=== PATIENT | female | born 1995 | race Caucasian/White ===

== ENCOUNTER 2017-12-18 10:48 | Inpatient (IN) ==
[~2017-12-18 10:48] MED LIST: *HR* Nalbuphine 10 MG/ML AMPUL IVP PRN; Famotidine 20 MG/2 ML VIAL IVP PRN; Metoclopramide 10 MG/2 ML VIAL IVP PRN; Naloxone 0.4 MG/ML INJ IVP PRN; Ondansetron 4 MG/2 ML VIAL IVP PRN
[2017-12-18] MEDS ORDERED: Penicillin G Potassium 5,000,000 UNIT in 0.9 % Sodium Chloride 100 ML IVPB ONE (10:51)
[2017-12-18] MEDS ORDERED: Ringers Solution, Lactated 1,000 ML ONE (10:54)
[2017-12-18] MEDS ORDERED: Ringers Solution, Lactated 1,000 ML IVC SCH (11:00)
--- NOTE | 2017-12-18 11:08 | OB/GYN History & Physical ---
Date of Encounter: 12/18/17 Time of Encounter: 11:09 Assessment and Plan (1) 39 weeks gestation of Current visit: Yes Status: Acute Intrauterine Active labor Admit to L&D for observation of labor Expectant management Labs-CBC and clot to hold Continuous electronic monitoring Pain management plan is undecided Anticipate Dr. Stanford is OB recreation coordinator and and is available as needed (2) SROM (spontaneous rupture of membranes) Current visit: Yes Status: Acute (3) Meconium in amniotic fluid Current visit: Yes Status: Acute Nursery and respiratory to attend delivery (4) GBS (group B Streptococcus carrier), +RV culture, currently Current visit: Yes Status: Acute GBS prophylaxis with penicillin (5) Rh negative status during in third trimester Current visit: Yes Status: Acute Rhogam evaluation History of Present Illness Chief complaint: SROM HPI: Ms. Jacobson is a 22 year old female at 39 weeks 3 days gestation with an estimated date of of 12/22/17. She presents with complaints of spontaneous rupture membranes that was green and clear this morning around 8 AM. She states that 20 minutes later her contractions began. She endorses good movement and denies vaginal bleeding. She has been seen by the midwives throughout her . records are available electronically and have been reviewed. Her has been uncomplicated. Labs: A- GBS + GC/CL- HIV- Hep B- Rubella immune Varicella immune Past Med Surg Social Fam HX - Past Medical History Medical history: no medical history Psychiatric history: no psych history - Social History Smoking Status: Never smoker Smokeless Tobacco Status: No Obstetrical History - Pregnancies : 2 Para: 0 Term: 0 : 0 Ab's: 1 Livin Medications and Allergies 3 Allergy/AdvReac Type Severity Reaction Status Date / Time No Known Allergies Allergy Verified 07/23/17 14:29 Review of System OB All systems PM: reviewed and no additional remarkable complaints except as stated - Genitourinary Genitourinary: as per HPI Exam - Constitutional Constitutional: well developed, well nourished, moderate distress - HEENT HEENT: Normocephaly, Mucus Membranes Moist - Neck Neck exam: full ROM - Lungs Respiratory exam: CTAB - Cardiovascular Cardiovascular exam: RRR, +S1, +S2 - Breasts Breast: bilateral: normal - Abdomen Abdomen: Present: bowel sounds normal, gravid, non tender - Extremities Extremities exam: normal capillary refill, normal inspection, radial pulses palpable and symmetrical - Vulva Vulva: bilateral: normal - Vagina Vagina: Present: normal moisture, discharge - Cervix Dilation: 6 Effacement: 90 Station: 0 - Uterus Uterus exam: Present: normal size, normal contour - Anus/Rectum Anus/Rectum: Present: normal perianal skin Results All other labs normal. - VTE Reasons for not Prescribing Prophylaxis: Treatment not Indicated - Low risk for VTE
[2017-12-18 11:51] LABS: Basophils % 0.1 %; Hematocrit 41.2 % (35.3-44.9); Hemoglobin 14.4 g/dL (11.5-15.4); Immature Granulocytes % 0.8 % (0-4); Lymphocytes # 0.9 K/mcL (0.6-4.6); Mean Corpuscular Hemoglobin 31.5 pg (28.0-33.3); Mean Corpuscular Volume 90.2 fL (83.0-100.0); Monocytes # 1.8 K/mcL (0.0-1.3); Monocytes % 8.2 %; Neutrophils # 18.6 K/mcL (1.6-8.9); Platelet Count 180 K/mcL (140-400); Red Blood Count 4.57 M/mcL (3.82-4.97); Red Cell Distribution Width 13.5 % (11.5-14.5); Segmented Neutrophils % 86.9 %
[2017-12-18] MEDS ORDERED: Penicillin G Potassium 2,500,000 UNIT in 0.9 % Sodium Chloride 100 ML IVPB SCH (12:00)
[2017-12-18] MEDS ORDERED: Epidural Premix (fent/bupiv) 110 ML EP SCH (12:30)
[2017-12-18] MEDS ORDERED: Lidocaine 1% 20 ML MDV ONE (12:32)
[2017-12-18] MEDS ORDERED: Epidural Premix (fent/bupiv) 110 ML EP ONE (12:38)
--- NOTE | 2017-12-18 13:09 | Anesthesia Evaluation PreOp ---
Date of Encounter: 12/18/17 Time of Encounter: 12:00 - Past History Cardiac History: Denies any Significant Hx Pulmonary History: Denies Any Significant HX SUPERVISOR EVAPORATOR History: Denies Any Significant HX Other Medical History: Denies Any Significant HX Anesthesia History: No Prior Anesthetic Complications : Yes Test: Positive Alcohol Use: none Drug use: none Medications and Allergies 3 Allergy/AdvReac Type Severity Reaction Status Date / Time No Known Allergies Allergy Verified 07/23/17 14:29 - Meds/Allergy Pre-op Review Medications Reviewed: Yes Allergies Reviewed: Yes Beta Blockers on Current Med List: No Anesthesia Results - Labs 12/18/17 11:08 Anesthesia Exam - HEENT Pupil (Motor): Pupils equal Mallampati: II Teeth: Normal Oral Opening: Greater than 3 - SUPERVISOR EVAPORATOR LOC: Oriented SUPERVISOR EVAPORATOR Motor: Normal RUE, Normal LUE, Normal RLE, Normal LLE, Normal Face SUPERVISOR EVAPORATOR Sensory: Normal: RUE, LUE, RLE, LLE, Face - Cardiac Rhythm: Regular Murmur: None JVD: No Carotid Bruit: No - Pulmonary Breath Sounds: bilateral Clear Respiratory Effort: Symmetrical Anesthesia Assess/Plan ASA Score: 2 Modified Asael Scale for Level of Consciousness: Cooperative, oriented, and tranquil Anesthetic Plan: Regional Autologous Blood: No Monitoring Plan: Standard Monitors
--- NOTE | 2017-12-18 13:12 | Anesthesia Procedures ---
Date of Encounter: 12/18/17 Time of Encounter: 12:00 Procedures: Anesthesia - Epidural/Spinal Patient ID/Chart reviewed: Yes Patient examined: Yes OB Eval: Gestational age: 39.3 OB Eval: : 1 OB Eval: Hx Para: 0 OB Eval: Dilated at (cm): 6 OB Eval: Contractions: Non-stressed pattern Consent Obtained: Yes Supplemental Oxygen: None/Room Air Site Prep: Aseptic Technique, Sterile prep and drape, Povidone-Iodine 1% Patient position: upright Amount of Local Anesthetic used: 3 Touhy Needle Gauge: 18 Touhy Needle Depth (cm): 6 Catheter Depth at Skin (cm): 8 Test Dose (1.5% Lido + Epi): Volume given (mls): 3 Test Dose Result: Negative Loading Dose Administered: Thru Catheter Infusion Rate (mls/hr): [address]: Tegaderm, Tape Interspace Used: L4-L5 Loss of Resistance (IDALIA): Yes Blood: No CSF: No Paresthesia: No Vitals + FHT's: stable throughout see nursing notes
--- NOTE | 2017-12-18 15:09 | OB Labor Progress Note ---
Date of Encounter: 12/18/17 Time of Encounter: 15:06 Labor Progress Note - Subjective Subjective: Pt comfortable with epidural. - Cervix Cervix: 9.5/100/+1 - Heart Tones Heart Tones: Baseline 155 Minimal to moderate variability No accelerations No decelerations FHR category II - [place]: Contractions every 3 minutes and palpate strong - Interventions Interventions: NINA leon - Plan Plan: Continue expectant management Alethea leon x 1 hour Anticipate
[2017-12-18] MEDS ORDERED: Lidocaine 1% 20 ML MDV INFILT PRN (15:53)
[2017-12-18] MEDS ORDERED: Oxytocin 20 units/ LR 1000 mL 20 UNIT/1,000 ML BAG IVC ONE ×2 (16:23→20:41)
--- NOTE | 2017-12-18 18:59 | OB/GYN Procedure Note ---
Delivery - Delivery Date: 12/18/17 Provider: Candi Layne Intrapartum events: meconium Delivery induction: none Delivery monitor: external FHT, external uterine Anesthesia: epidural Quantitated Blood Loss: 400 - (s) Infant A Infant Delivery Date: 12/18/17 Infant Delivery Time: 17:22 Presentation: vertex Position: YENNY Route of delivery: Gender: Male Viability: Viable Pounds: 8 Ounces: 3 Weight Gram: 3.71 kg at 1 minute: 8 at 5 mins: 9 Shoulder Dystocia: not encountered Specimens collected: cord blood Placenta: spontaneous Cord: 3 umbilical vessels - Repair Episiotomy: none Laceration Description: Perineal - 3rd Degree (partial - repaired by Dr. Stanford) - Complications Delivery complications: none Delivery comments: This is a 22-year-old G1 now P1 who is admitted for spontaneous rupture of membranes with meconium-stained fluid in active labor. She progressed spontaneously to the second stage of labor. She pushed for a little more than an hour. Under maternal effort she delivered a viable male "Matthew Tod Glass III", YENNY over a partial third-degree laceration. The infant was placed on the maternal abdomen where the mouth and nares were bulb suctioned. The cord was clamped by resident surgeon and cut by FOB after pulsations ceased. No nuchal cord was identified. No shoulder dystocia was encountered. scores were 8 at 1 minute and 9 at 5 minutes. 's weight was 8lbs 3oz (3710g). The placenta delivered ([place]) spontaneously, intact, with a three-vessel cord. Inspection revealed a partial third degree laceration for which Dr. Stanford was called in to repair. Please see Dr. Stanford's addendum for details of repair. The uterus was firm with no active bleeding. The repair was done under epidural anesthesia. EBL was 400 mL. Placenta was sent to pathology for multiple large fatty appearing globules. Umbilical artery blood gases were not sent. There were no complications during the procedure. Mom and baby are skin to skin following delivery. - Disposition Mom disposition: stable in LDR disposition: stable in LDR
[2017-12-18] MEDS ORDERED: Sennosides 8.6 MG TABLET PO PRN (22:21)
[2017-12-18] MEDS ORDERED: Rho Immune Globulin 1,500 UNIT SYRINGE IM PRN (22:21)
[2017-12-18] MEDS ORDERED: Benzocaine/Menthol 56 GM AEROSOL SPRAY TP PRN (22:21)
[2017-12-18] MEDS ORDERED: Oxytocin 20 units/ LR 1000 mL 20 UNIT/1,000 ML BAG IVC SCH (22:21)
[2017-12-18] MEDS ORDERED: *HR* HYDROcodone/Acet 5/325 mg TABLET PO PRN (22:21)
[2017-12-18] MEDS ORDERED: Acetaminophen 325 MG TABLET PO PRN (22:21)
[2017-12-19 04:42] LABS: Basophils % 0.1 %; Hematocrit 29.7 % (35.3-44.9); Immature Granulocytes % 0.8 % (0-4); Lymphocytes % 4.9 %; Mean Corpuscular HGB Conc 34.7 g/dL (31.6-35.5); Mean Corpuscular Hemoglobin 30.5 pg (28.0-33.3); Mean Corpuscular Volume 87.9 fL (83.0-100.0); Mean Platelet Volume 9.9 fL (9.4-12.4); Monocytes # 2.2 K/mcL (0.0-1.3); Neutrophils # 16.6 K/mcL (1.6-8.9); Platelet Count 180 K/mcL (140-400); Red Blood Count 3.38 M/mcL (3.82-4.97); Red Cell Distribution Width 14.1 % (11.5-14.5); Segmented Neutrophils % 83.2 %
[2017-12-19 04:44] LABS: Hemoglobin 10.3 g/dL (11.5-15.4)
[2017-12-19] MEDS: Ibuprofen 600 MG TABLET PO PRN ×2 (05:24→09:17)
[2017-12-19 08:20] VITALS: BP 106/70
[2017-12-19] MEDS ORDERED: Prenatal Vit/FA 1 EACH TABLET PO SCH (09:00)
--- NOTE | 2017-12-19 09:51 | Discharge Summary ---
Date of Encounter: 12/19/17 Time of Encounter: 09:51 - Discharge Diagnosis (1) Vaginal delivery Priority: Primary Status: Acute Comments: Pt meeting milestones. Pain well controlled. She desires discharge home today. (2) Third degree perineal laceration Priority: Secondary Status: Acute Comments: Home with dermoplast, colace, and sitz bath. (3) Rh negative status during in third trimester Priority: Secondary Status: Acute Comments: Rhogam prior to discharge. - Discharge Medications Prescriptions: Ibuprofen [Motrin] 600 mg PO Q6HR PRN #30 tablet PRN Reason: Cramping Docusate [Colace] 100 mg PO BID #60 capsule Home Medications: Benzocaine/Menthol Helen [Dermoplast Helen] 1 appl TP QID PRN aerosol 12/19/17 [Rx] Docusate [Colace] 100 mg PO BID #60 capsule 12/19/17 [Rx] Ibuprofen [Motrin] 600 mg PO Q6HR PRN #30 tablet 12/19/17 [Rx] Vit/FA 1 each PO DAILY tablet 12/19/17 [Rx] Allergies/Adverse Reactions: 3 Allergy/AdvReac Type Severity Reaction Status Date / Time No Known Allergies Allergy Verified 07/23/17 14:29 Data Procedures and tests throughout hospitalization: Laboratory Tests 12/18/17 12/18/17 12/19/17 11:08 18:20 04:26 WBC 21.4 H 20.0 H RBC 4.57 3.38 L Hgb 14.4 10.3 L D Hct 41.2 29.7 L MCV 90.2 87.9 MCH 31.5 30.5 MCHC 35.0 34.7 RDW 13.5 14.1 Plt Count 180 180 MPV 11.0 9.9 Immature Gran % 0.8 0.8 Seg Neutrophils % 86.9 83.2 Lymphocytes % 4.0 4.9 Monocytes % 8.2 11.0 Eosinophils % 0.0 0.0 Basophils % 0.1 0.1 Neutrophils # 18.6 H 16.6 H Lymphocytes # 0.9 1.0 Monocytes # 1.8 H 2.2 H Eosinophils # 0.0 0.0 Basophils # 0.0 0.0 Screen NEGATIVE Baby's Blood Type A RH POSITIVE Mother's Blood Type A RH NEGATIVE Rhogam Indicated YES Rhogam Req for Mother 1 Labs on day of discharge: Labs from last 24 hours 12/19/17 12/18/17 12/18/17 04:26 18:20 11:08 WBC 20.0 H 21.4 H RBC 3.38 L 4.57 Hgb 10.3 L D 14.4 Hct 29.7 L 41.2 MCV 87.9 90.2 MCH 30.5 31.5 MCHC 34.7 35.0 RDW 14.1 13.5 Plt Count 180 180 MPV 9.9 11.0 Immature Gran % 0.8 0.8 Seg Neutrophils % 83.2 86.9 Lymphocytes % 4.9 4.0 Monocytes % 11.0 8.2 Eosinophils % 0.0 0.0 Basophils % 0.1 0.1 Neutrophils # 16.6 H 18.6 H Lymphocytes # 1.0 0.9 Monocytes # 2.2 H 1.8 H Eosinophils # 0.0 0.0 Basophils # 0.0 0.0 Screen NEGATIVE Baby's Blood Type A RH POSITIVE Mother's Blood Type A RH NEGATIVE Rhogam Indicated YES Rhogam Req for Mother 1 Date of admission: 12/18/17 10:48 Primary care physician: Sumeet Cantrell MD Consults: 12/18/17 22:21 Consult to Project Director [CONS] Routine Comment: Vaginal delivery, consult needed Discharging clinician: Gretchen Camarillo Anticipated date of discharge: 12/19/17 - Patient Status Disposition: Home, Self-Care Condition: Good Functional capacity at discharge: independent ambulation Overall status at discharge: patient is progressing back to baseline - Discharge Instructions Follow Up With: Sumeet Cantrell MD [Primary Care Provider] - Candi Layne [Advanced Practice Nurse] - - Diet and Activity Activity: increase activity as tolerated Diet: regular diet Hospital Course Reason for admission: rupture of membranes Delivery: Episiotomy: none Laceration: 3rd degree Other procedures: none complications: none Discharge diagnosis: IUP at term delivered baby: male Hospital course: - Delivery Date: 12/18/17 Provider: Candi Layne Intrapartum events: meconium Delivery induction: none Delivery monitor: external FHT, external uterine Anesthesia: epidural Quantitated Blood Loss: 400 - Infant (s) A Delivery Date: 12/18/17 Infant Delivery Time: 17:22 Presentation: vertex Position: YENNY Route of delivery: Gender: Male Viability: Viable Pounds: 8 Ounces: 3 Weight Gram: 3.71 kg at 1 minute: 8 at 5 mins: 9 Shoulder Dystocia: not encountered Specimens collected: cord blood Placenta: spontaneous Cord: 3 umbilical vessels - Repair Episiotomy: none Laceration Description: Perineal - 3rd Degree (partial - repaired by Dr. Stanford) - Complications Delivery complications: none - Disposition Mom disposition: home PPD1 disposition: home with mother, Time Attestation: Total time spent providing and/or coordinating discharge services: Time Spent: Less than 30 minutes Exam - Constitutional Vitals: Temp Pulse Resp BP Pulse Ox 98.2 F 87 18 106/70 99 12/19/17 08:19 12/19/17 08:19 12/19/17 08:19 12/19/17 08:19 12/19/17 08:19 General appearance IM: A&O X 3 - Respiratory Respiratory exam: Present: CTAB - Cardiovascular Cardiovascular exam IM: Present: RRR - GI/Abdominal GI/Abdominal exam IM: soft - Uterine Tone: Firm Uterus Position: 1 Finger Below Umbilicus - Extremities Exam Extremities exam IM: Present: pedal edema (no redness or warmth) - Neurological Exam Neurological exam: oriented X3 - Psychiatric Additional comments: reprots good mood
== END 2017-12-19 15:52 | disposition home or self-care (01) | DRG 775 ==
LOC: 1NENULAB → 1NENUOBS 21:20
PROVIDERS: ADMIT Advanced Practice Midwife; ATTEND Advanced Practice Midwife

== ENCOUNTER 2019-02-14 05:28 | Inpatient (IN) ==
[2019-02-14 05:22] LABS: Basophils % 0.2 %; Eosinophils # 0.1 K/mcL (0.0-0.6); Eosinophils % 0.8 %; Hematocrit 40.3 % (35.3-44.9); Hemoglobin 13.4 g/dL (11.5-15.4); Immature Granulocytes % 0.7 % (0-4); Lymphocytes # 1.1 K/mcL (0.6-4.6); Lymphocytes % 12.3 %; Mean Corpuscular HGB Conc 33.3 g/dL (31.6-35.5); Mean Corpuscular Hemoglobin 30.5 pg (28.0-33.3); Mean Corpuscular Volume 91.6 fL (83.0-100.0); Mean Platelet Volume 10.6 fL (9.4-12.4); Monocytes # 0.6 K/mcL (0.0-1.3); Monocytes % 6.6 %; Neutrophils # 6.9 K/mcL (1.6-8.9); Platelet Count 182 K/mcL (140-400); Red Cell Distribution Width 12.9 % (11.5-14.5); Segmented Neutrophils % 79.4 %; White Blood Count 8.7 K/mcL (4.3-11.1)
[~2019-02-14 05:28] MED LIST changes: +Epidural Premix (fent/bupiv) 110 ML EP ONE; +Lidocaine 1% 20 ML MDV ID PRN; +Ringers Solution, Lactated 1,000 ML IVC SCH; +Ringers Solution, Lactated 1,000 ML ONE
[2019-02-14] MEDS ORDERED: Ondansetron 4 MG/2 ML VIAL IVP PRN (05:30)
[2019-02-14] MEDS ORDERED: Epidural Premix (fent/bupiv) 110 ML EP SCH (06:30)
[2019-02-14] MEDS ORDERED: Oxytocin 20 units/ LR 1000 mL 20 UNIT/1,000 ML BAG IVC ONE (08:09)
[2019-02-14] MEDS ORDERED: Sennosides 8.6 MG TABLET PO PRN (10:44)
[2019-02-14] MEDS ORDERED: Benzocaine/Menthol 56 GM AEROSOL SPRAY TP PRN (10:44)
[2019-02-14] MEDS ORDERED: Oxytocin 20 units/ LR 1000 mL 20 UNIT/1,000 ML BAG IVC SCH (10:44)
[2019-02-14] MEDS ORDERED: Acetaminophen 325 MG TABLET PO PRN (10:44)
[2019-02-14] MEDS ORDERED: Rho Immune Globulin 1,500 UNIT SYRINGE IM PRN (10:44)
[2019-02-14] MEDS: Ibuprofen 600 MG TABLET PO PRN ×2 (10:59→21:13)
[2019-02-14 11:51] LABS: Amphetamine Screen,Urine Negative ng/mL (Cutoff=1000); Barbiturate Screen,Urine Negative ng/mL (Cutoff=200); Benzodiazepines Screen,Urine Negative ng/mL (Cutoff=200); Cannabinoid Screen,Urine Negative ng/mL (Cutoff = 50); Cocaine Screen,Urine Negative ng/mL (Cutoff= 300); Opiate Screen,Urine Negative ng/mL (Cutoff=300); Phencyclidine Screen,Urine Negative ng/mL (Cutoff=25)
[2019-02-15 07:46] VITALS: BP 117/76
[2019-02-15] MEDS: Ibuprofen 600 MG TABLET PO PRN (08:27)
[2019-02-15] MEDS ORDERED: Prenatal Vit/FA 1 EACH TABLET PO SCH (09:00)
== END 2019-02-15 15:26 | disposition home or self-care (01) | DRG 807 ==
LOC: 1NENULAB → 1NENUOBS 11:07
PROVIDERS: ADMIT Advanced Practice Midwife; ATTEND Advanced Practice Midwife

== ENCOUNTER 2021-06-01 20:52 | Inpatient (IN) ==
[2021-06-01] MEDS ORDERED: Lidocaine 1% 20 ML MDV INFILT PRN (20:58)
[2021-06-01] MEDS ORDERED: *HR* Nalbuphine 10 MG/ML AMPUL IV PRN (20:58)
[2021-06-01] MEDS ORDERED: Metoclopramide 10 MG/2 ML VIAL IVP PRN (20:58)
[2021-06-01] MEDS ORDERED: Famotidine 20 MG/2 ML VIAL IVP PRN (20:58)
[2021-06-01] MEDS ORDERED: Ondansetron 4 MG/2 ML VIAL IVP PRN (20:58)
[2021-06-01] MEDS ORDERED: Naloxone 0.4 MG/ML INJ IVP PRN (20:58)
[2021-06-01] MEDS ORDERED: Ringers Solution, Lactated 1,000 ML IVC SCH (21:00)
[2021-06-01] MEDS ORDERED: EPHEDrine 50 MG/ML VIAL IVP PRN (21:51)
[2021-06-01] MEDS ORDERED: Epidural Premix (fent/bupiv) 110 ML EP SCH (22:00)
[2021-06-01 22:01] LABS: Basophils % 0.3 %; Eosinophils # 0.1 K/mcL (0.0-0.6); Hematocrit 39.4 % (35.3-44.9); Hemoglobin 13.2 g/dL (11.5-15.4); Immature Granulocytes % 0.4 % (0-4); Lymphocytes # 1.3 K/mcL (0.6-4.6); Mean Corpuscular HGB Conc 33.5 g/dL (31.6-35.5); Mean Corpuscular Hemoglobin 30.9 pg (28.0-33.3); Mean Corpuscular Volume 92.3 fL (83.0-100.0); Mean Platelet Volume 10.3 fL (9.4-12.4); Monocytes # 0.7 K/mcL (0.0-1.3); Monocytes % 7.1 %; Neutrophils # 8.2 K/mcL (1.6-8.9); Platelet Count 215 K/mcL (140-400); Red Blood Count 4.27 M/mcL (3.82-4.97); Red Cell Distribution Width 14.4 % (11.5-14.5); Segmented Neutrophils % 79.2 %; White Blood Count 10.4 K/mcL (4.3-11.1)
[2021-06-01 22:10] LABS: Amphetamine Screen,Urine Negative ng/mL (Cutoff=1000); Barbiturate Screen,Urine Negative ng/mL (Cutoff=200); Benzodiazepines Screen,Urine Negative ng/mL (Cutoff=200); Cannabinoid Screen,Urine Negative ng/mL (Cutoff = 50); Cocaine Screen,Urine Negative ng/mL (Cutoff= 300); Opiate Screen,Urine Negative ng/mL (Cutoff=300); Phencyclidine Screen,Urine Negative ng/mL (Cutoff=25)
[2021-06-01 22:35] LABS: Influenza A PCR Negative (Negative); Influenza B PCR Negative (Negative); Resp. Syncytial Virus PCR Negative (Negative)
[2021-06-01 22:46] LABS: SARS-CoV-2 by PCR (In House) Negative (Negative)
[2021-06-02] MEDS ORDERED: Ondansetron ODT 4 MG TAB.RAPDIS SL PRN (10:48)
[2021-06-02] MEDS ORDERED: Benzocaine/Menthol 56 GM AEROSOL SPRAY TP PRN (10:48)
[2021-06-02] MEDS ORDERED: Prenatal Vit/FA 1 EACH TABLET PO SCH (10:48)
[2021-06-02] MEDS ORDERED: Oxytocin 20 units/ LR 1000 mL 20 UNIT/1,000 ML BAG IVC ONE (10:48)
[2021-06-02] MEDS ORDERED: Oxytocin 20 units/ LR 1000 mL 20 UNIT/1,000 ML BAG IVC SCH (10:48)
[2021-06-02] MEDS ORDERED: Lanolin 7 G OINT...G. TP PRN (10:48)
[2021-06-02] MEDS ORDERED: Rho Immune Globulin 1,500 UNIT SYRINGE IM PRN (10:48)
[2021-06-02] MEDS: Ibuprofen 600 MG TABLET PO SCH ×2 (12:16→18:51)
[2021-06-02] MEDS: Acetaminophen 325 MG TABLET PO SCH ×2 (12:16→18:51)
[2021-06-03] MEDS: Ibuprofen 600 MG TABLET PO SCH ×2 (03:03→09:13)
[2021-06-03] MEDS: Acetaminophen 325 MG TABLET PO SCH ×2 (03:04→09:13)
[2021-06-03 07:32] VITALS: BP 119/79; PULSE 69; TEMP 97.8; O2SAT 99
== END 2021-06-03 10:14 | disposition home or self-care (01) | DRG 806 ==
LOC: 1NENULAB 20:52 → 1NENUOBS 06-02 10:44
PROVIDERS: ADMIT Advanced Practice Midwife; ATTEND Advanced Practice Midwife